=== PATIENT | female | born 1955 | race Caucasian/White ===

== ENCOUNTER 2020-08-15 10:23 | Outpatient (CLI) | payer OTHER, SELFPAY ==
--- NOTE | ~2020-08-15 | MM_ITS ---
EXAMINATION: MM screening pepe BI w alvarez HISTORY: Screening mammogram TECHNIQUE: Craniocaudal and mediolateral oblique 3-D tomosynthesis images were obtained and synthetic 2-D images were generated. CAD analysis was submitted and interpreted. COMPARISON: 08/12/2019 bilateral digital screening mammogram BREAST PARENCHYMAL COMPOSITION: The breasts are almost entirely fatty. FINDINGS: There is no evidence of suspicious mass, calcification, or architectural distortion to sugg est malignancy in either breast. There has been no suspicious interval change. IMPRESSION: 1. No mammographic evidence of malignancy. 2. Recommend routine screening mammography in one year. BI-RADS Category 1: Negative Reviewed, dictated and finalized at location A.
== END 2020-08-15 10:24 | disposition home or self-care (01) ==
PROVIDERS: Visit Provider Obstetrics & Gynecology
DX: Z12.31 Encounter for screening mammogram for malignant neoplasm of breast (principal)
CPT/HCPCS: 77063; 77067

== ENCOUNTER 2021-08-17 09:46 | Outpatient (CLI) | payer OTHER, SELFPAY ==
--- NOTE | ~2021-08-17 | MM_ITS ---
EXAMINATION: MM screening pepe BI w alvarez HISTORY: Screening TECHNIQUE: Craniocaudal and mediolateral oblique 3-D tomosynthesis images were obtained and synthetic 2-D images were generated. CAD analysis was submitted and interpreted. COMPARISON: Comparison to multiple prior studies sequentially, with oldest reviewed study dated 08/12. BREAST PARENCHYMAL COMPOSITION: There are scattered areas of fibroglandular density. FINDINGS: There is no evidence of suspicious mass, calcification, or architectural distortion to sugg est malignancy in either breast. There has been no suspicious interval change. IMPRESSION: 1. No mammographic evidence of malignancy. 2. Recommend routine screening mammography in one year. BI-RADS Category 1: Negative Reviewed, dictated and finalized at location A.
== END 2021-08-17 09:47 | disposition home or self-care (01) ==
LOC: ANHIMG 09:50
PROVIDERS: Visit Provider Obstetrics & Gynecology
DX: Z12.31 Encounter for screening mammogram for malignant neoplasm of breast (principal)
CPT/HCPCS: 77063; 77067

== ENCOUNTER 2022-10-18 14:13 | Outpatient (CLI) | payer OTHER, SELFPAY ==
--- NOTE | ~2022-10-18 | MM_ITS ---
EXAMINATION: MM screening pepe BI w alvarez HISTORY: Screening TECHNIQUE: Craniocaudal and mediolateral oblique 3-D tomosynthesis images were obtained and synthetic 2-D images were generated. CAD analysis was submitted and interpreted. COMPARISON: Comparison to multiple prior studies sequentially, with oldest reviewed study dated 08/12. BREAST PARENCHYMAL COMPOSITION: There are scattered areas of fibroglandular density. FINDINGS: There is no evidence of suspicious mass, calcification, or architectural distortion to sugg est malignancy in either breast. There has been no suspicious interval change. IMPRESSION: 1. No mammographic evidence of malignancy. 2. Recommend routine screening mammography in one year. BI-RADS Category 1: Negative Reviewed, dictated and finalized at location A. 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
== END 2022-10-18 14:14 | disposition home or self-care (01) ==
PROVIDERS: PCP Internal Medicine; Visit Provider Obstetrics & Gynecology
DX: Z12.31 Encounter for screening mammogram for malignant neoplasm of breast (principal)
CPT/HCPCS: 77063; 77067

== ENCOUNTER 2023-03-18 12:47 | Outpatient (CLI) | payer OTHER, SELFPAY ==
--- NOTE | ~2023-03-18 | DEXA_ITS ---
Bone Density Report Name: ANUJA MORENO Age: 67 Sex: Female Ethnicity: White Date of : 1955 Indication: postmenopausal; screening for osteoporosis; height loss; Referring Provider: KATIANA, JAN Belcher Study: Bone densitometry was performed. Exam Date: March 18, 2023 Accession number: [id number] Bone Density: Region BMD T-score Z-score Classification AP Spine(L1-L4) 0.954 -0.8 1.1 Normal Femoral Neck (Left) 0.662 -1.7 0.0 Osteopenia Total Hip (Left) 0.918 -0.2 1.2 Normal Femoral Neck (Right) 0.724 -1.1 0.5 Osteopenia Total Hip (Right) 1.075 1.1 2.5 Normal Total Hip Mean 0.997 0.5 1.9 Normal World Health Organization criteria for BMD impression classify patients as: Normal (T-score at or above -1.0), Osteopenia (T-score between -1.0 and -2.5), or Osteoporosis (T-score at or below -2.5). 10-year Fracture Risk(1): Major Osteoporotic Fracture 8.7% Hip Fracture 1.1% Reported Risk Factors: [place] (), Neck BMD=0.662, BMI=39.5 (1) FRAX(R) Version 3.08. Fracture probability calculated for an untreated patient. Fracture probability may be lower if the patient has received treatment. Clinical Information Provided by Patient: Patient maximum height was 64 Menopause Age: 57 No regular weight bearing exercise Drinks caffeinated beverages Onset of menses at age 14 Number of children 1 Impression: The patient has low bone mass, based on the Left Femoral Neck T-score. The patient has an estimated ten-year risk of hip fracture of 1.1% and an estimated ten-year risk of major fracture of 8.7%, based on the WHO FRAX algorithm. Discussion: BONE DENSITY IS LOW AT ONE OR MORE SKELETAL SITES. This patient's lowest T-score is low at one or more skeletal sites. It meets the World Health Organization's (WHO) criteria for ?low bone mass? (T-score between -1.0 and -2.5). The patient's 10-year risk of fracture as calculated by FRAX is less than the threshold where pharmacological therapy is recommended by the National Osteoporosis Foundation (NOF). However, all treatment decisions require clinical judgment and consideration of individual patient factors, including patient preferences, comorbidities, previous drug use, risk factors not captured in the FRAX model (e.g., frailty, falls, vitamin D deficiency, increased bone turnover, interval significant decline in bone density) and possible under or overestimation of fracture risk by FRAX. The patient should follow a healthful lifestyle (good nutrition with adequate calcium and vitamin D, and appropriate weight-bearing exercise). Follow-Up: Consider repeating this study in 2 to 3 years to reassess this patient's status, or sooner if there is some new clinical indication. Reported by: [facility] on 03/18/2023 1:08:00 PM.
== END 2023-03-18 12:48 | disposition home or self-care (01) ==
PROVIDERS: PCP Internal Medicine; Visit Provider Internal Medicine
DX: Z78.0 Asymptomatic menopausal state (principal); M85.852 Other specified disorders of bone density and structure, left thigh; M85.851 Other specified disorders of bone density and structure, right thigh
CPT/HCPCS: 77080

== ENCOUNTER 2023-10-21 10:13 | Outpatient (CLI) | payer OTHER, SELFPAY ==
--- NOTE | ~2023-10-21 | MM_ITS ---
EXAMINATION: MM screening pepe BI w alvarez HISTORY: Screening mammogram TECHNIQUE: Craniocaudal and mediolateral oblique 3-D tomosynthesis images were obtained and synthetic 2-D images were generated. CAD analysis was submitted and interpreted. COMPARISON: 10/18/2022, 08/17/2021, 08/15/2020 bilateral screening mammogram examinations BREAST PARENCHYMAL COMPOSITION: The breasts are almost entirely fatty. FINDINGS: There is no evidence of suspicious mass, calcification, or architectural distortion to sugg est malignancy in either breast. There has been no suspicious interval change. IMPRESSION: 1. No mammographic evidence of malignancy. 2. Recommend routine screening mammography in one year. BI-RADS Category 1: Negative Reviewed, dictated and finalized at location A. AURANT MGR
== END 2023-10-21 10:14 | disposition home or self-care (01) ==
LOC: ANHIMG 10:15
PROVIDERS: PCP Internal Medicine; Visit Provider Obstetrics & Gynecology
DX: Z12.31 Encounter for screening mammogram for malignant neoplasm of breast (principal)
CPT/HCPCS: 77063; 77067

== ENCOUNTER 2024-11-05 15:47 | Outpatient (CLI) | payer OTHER, SELFPAY ==
--- NOTE | ~2024-11-05 | MM_ITS ---
EXAMINATION: MM screening pepe BI w alvarez HISTORY: Screening TECHNIQUE: Craniocaudal and mediolateral oblique 3-D tomosynthesis images were obtained and synthetic 2-D images were generated. CAD analysis was submitted and interpreted. COMPARISON: Comparison to multiple prior studies sequentially, with oldest reviewed study dated 08/12. BREAST PARENCHYMAL COMPOSITION: Not Dense: The breasts are almost entirely fatty. FINDINGS: There is no evidence of suspicious mass, calcification, or architectural distortion to sugg est malignancy in either breast. There has been no suspicious interval change. IMPRESSION: 1. No mammographic evidence of malignancy. 2. Recommend routine screening mammography in one year. BI-RADS Category 1: Negative Reviewed, dictated and finalized at location B. 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
== END 2024-11-05 15:48 | disposition home or self-care (01) ==
PROVIDERS: PCP Internal Medicine; Visit Provider Obstetrics & Gynecology
DX: Z12.31 Encounter for screening mammogram for malignant neoplasm of breast (principal)
CPT/HCPCS: 77063; 77067

== ENCOUNTER 2025-08-06 14:13 | Outpatient (CLI) | payer OTHER, SELFPAY ==
--- OUTSIDE RECORDS SUMMARY | 2015-04-26 05:00 | XMS_ITS | Continuity of Care Document ---
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 Name Role Phone Nicol BAIRES, Kedar Unavailable Unavailable Allergies, Adverse Reactions, Alerts Substance Reaction Status Criticality No Known Allergies Active No Inform ation Medications Medication Instructions Dosage Effective Dates (start - stop) Status Comments Synthroid 25 mcg tablet take 1 tablet by oral route every day 25 MCG - Active Belviq 10 mg tablet take 1 tablet by ora l route 2 times every day - Active Procedures Procedure Date AFTER CATARACT LASER SURGERY OFFICE/OUTPATIENT VISIT, EST AFTER CATARACT LASER SURGERY OFFICE/OUTPATIENT VISIT, EST CATARACT SURG W/IOL, 1 STAGE CATARACT SURG W/IOL, 1 STAGE OFFICE/OUTPATIENT VISIT, NEW OPHTHALMIC BIOMETRY OPHTHALMIC BIOMETRY Advance Directives Directive Yes / No Effective Date File Name No Information Encounters Encounter Description Practice Location Reason(s) For Visit Diagnoses Date Provider Providers Copied on Encounter [facility], [id number] [place], [place] [address]TE [facility], [place], [place], [address], [place] tel:[phone] [facility] No Information Tank Thacker. [address] [place] [address], [address], [place], [place], [address], [place]. tel:[phone] Referring Provider: Kedar Rodriguez, [address] [facility] [address], [place], [address]. tel:[phone] OFFICE/OUTPA TIENT VISIT, EST [facility], [address] [facility] [address], [place], [place], [address], [place] tel:[phone] OPH CONSULT NIHARIKA GARCIA Yag PC eval (chief complaint) After-catarac t, obscuring visionOther vitreous opacitiesLens replaced by other means 5 Nicol Kedar. [address], [address], [place], [place], [address], [place]. tel:[phone] Referring Provider: Kedar Rodriguez, [address] [place] [address] [address], [place], [address]. tel:[phone] [facility], [address] [place], [place] [address], [place], [place], [id number], [place] tel:[phone] [facility] No Information 3 Nicol Kedar. [address] [facility], [address], [place], [place], [address], [place]. tel:[phone] Referring Provider: Kedar Rodriguez, [address] [place] [address] [address], [place], [address]. tel:[phone] OFFICE/OUTPA TIENT VISIT, EST [facility], [address] [place], [place] [address], [place], [place], [address], [place] tel:[phone] Oph Consult [facility] No Information 3 Nicol Kedar. [address] [facility], [address], [place], [place], [address], [place]. tel:[phone] Referring Provider: Kedar Rodriguez, [address] [facility] [address], [place], [address]. tel:[phone] [facility], [address] [place], [place] [address], [place], [place], [address], [place] tel:[phone] [facility] No Information 2 Nicol Kedar. [address] [facility], [address], [place], [place], [address], [place]. tel:[phone] Referring Provider: Kedar Rodriguez, [address], [place], [address]. tel:[phone] [facility], [address] [facility] [address], [place], [place], [address], tel:[phone] [facility] No Information 2 Nicolnichole Thacker. [address], [address], [place], [place], [address], [place]. tel:[phone] Referring Provider: Kedar Rodriguez, [address] [facility] [address], [place], [address]. tel:[phone] OFFICE/OUTPA TIENT VISIT, [facility], [address] [facility] [address], [place], [place], [address], tel:[phone] O[facility] No Information 2 Nicol Thacker. [address] [facility], [address], [place], [place], [address], . tel:[phone] Referring Provider: Kedar Rodriguez, [address] [facility] [address], [place], [address]. tel:[phone] Family History Family Member Type Diagnosis Age At Onset Maternal grandmother Problem (finding) glaucoma Payers Payer name Insurance type Covered green party ID Authoriza tion(s) [facility] CI [id number] Social History Type Description Quantity Date Captured Comments Sex Female Smoking Status No Information Chief Complaint And Reason For Visit No Information Reason For Referral Reason For Referral No Information History Of Present Illness Encounter Date Complaint History Of Prese nt Illness Yag PC eval Patient presents for Yag PC Eval per Dr. Israel. Patient complains of blurry vision OS. Patient states that its constant, significant, and progressively worsening over the last year. Patient has already had Yag PC OD. Functional Status Date Functional Assessmen t No Information Instructions Date Instruction Additional Infor cory Impression/Plan - Di scussed diagnosis in detail with patient. Discussed signs and symptoms of PVD/floaters. Discussed signs and symptoms of retinal detachment. Will continue to observe condition and or symptoms. Related to Other vitreous opacities Impression/Plan - s/ p Yag OD, Schedule Yag OS Related to Lens replaced by other means Impression/Plan - Di scussed diagnosis in detail with patient. Discussed treatment options with patient. Discussed risks/benefits of laser TX. Schedule Yag. Related to After-cataract, obscuring vision Assessments Type Assessment Date No Information Patient Care Teams Name Effective Dates (start - stop) Status Members No Information
--- NOTE | ~2025-08-06 | DEXA_ITS ---
Bone Density Report Name: ANUJA MORENO Age: 70 Sex: Female Ethnicity: White Date of : 1955 Indication: postmenopausal; screening for osteoporosis; height loss; Referring Provider: KATIANA, JAN Belcher Study: Bone densitometry was performed. Exam Date: August 06, 2025 Accession number: [id number] Bone Density: Region BMD T-score Z-score Classification AP Spine(L1-L4) 0.968 -0.7 1.4 Normal Femoral Neck (Left) 0.676 -1.6 0.2 Osteopenia Total Hip (Left) 0.946 0.0 1.5 Normal Femoral Neck (Right) 0.751 -0.9 0.9 Normal Total Hip (Right) 1.088 1.2 2.7 Normal Total Hip Mean 1.017 0.6 2.1 Normal World Health Organization criteria for BMD impression classify patients as: Normal (T-score at or above -1.0), Osteopenia (T-score between -1.0 and -2.5), or Osteoporosis (T-score at or below -2.5). 10-year Fracture Risk(1): Major Osteoporotic Fracture 8.7% Hip Fracture 1.2% Reported Risk Factors: [place] (), Neck BMD=0.676, BMI=41.1 (1) FRAX(R) Version 3.08. Fracture probability calculated for an untreated patient. Fracture probability may be lower if the patient has received treatment. Clinical Information Provided by Patient: Has used the following medications: Vitamin D Patient maximum height was 64 Menopause Age: 57 No regular weight bearing exercise Drinks caffeinated beverages Onset of menses at age 14 Number of children 1 Impression: The patient has low bone mass, based on the Left Femoral Neck T-score. The patient has an estimated ten-year risk of hip fracture of 1.2% and an estimated ten-year risk of major fracture of 8.7%, based on the WHO FRAX algorithm. Discussion: BONE DENSITY IS LOW AT ONE OR MORE SKELETAL SITES. This patient's lowest T-score is low at one or more skeletal sites. It meets the World Health Organization's (WHO) criteria for ?low bone mass? (T-score between -1.0 and -2.5). The patient's 10-year risk of fracture as calculated by FRAX is less than the threshold where pharmacological therapy is recommended by the National Osteoporosis Foundation (NOF). However, all treatment decisions require clinical judgment and consideration of individual patient factors, including patient preferences, comorbidities, previous drug use, risk factors not captured in the FRAX model (e.g., frailty, falls, vitamin D deficiency, increased bone turnover, interval significant decline in bone density) and possible under or overestimation of fracture risk by FRAX. The patient should follow a healthful lifestyle (good nutrition with adequate calcium and vitamin D, and appropriate weight-bearing exercise). Follow-Up: Consider repeating this study in 2 to 3 years to reassess this patient's status, or sooner if there is some new clinical indication. Reported by: CAMMY on 08/06/2025 3:07:00 PM. Reviewed, dictated and finalized at location A.
--- OUTSIDE RECORDS SUMMARY | 2025-08-06 14:17 | XMS_ITS | Clinical Summary ---
Author Organization [facility] Address [address] [place] [address] Care Team Providers Care Sales Representative Printing Paper Name Role Phone Roc Mcneal MD Primary Care Provider [phone] Social History Tobacco Use Types Packs/Day Years Used Date Smoking Tobacco: Never Assessed Comments Unknown Sex and Gender Information Value Date Recorded Sex Assigned at Not on file Legal Sex Female 4:07 PM CDT Gender Identity Not on file Sexual Orientation Not on file Plan of Treatment Health Maintenance Due Date Last Done Comments Colorectal Cancer Screening Colonoscopy (10 Years) 1955 Hepatitis C 1973 DTaP, Tdap and Td Vaccines ( 1 - Tdap) 1974 Mammogram Screening 1995 Pneumococcal Vaccine: 50+ Ye ars (1 of 1 - PCV) 2005 Zoster Vaccines (1 of 2) 2005 Dexa Scan (General) 2020 COVID-19 Vaccine (1 - 2023-2 5 season) 2025 RSV Immunization or 60+ Years (1 - 1-dose 75+ series) 2030 Meningococcal B Vaccine Aged Out No l onger eligible based on patient's age to complete this topic Meningococcal Vaccine Aged Out No michelle jessica eligible based on patient's age to complete this topic RSV Immunizations Under 20 Months Aged Out No longer eligible based on patient's age to complete this topic Care Teams Sales Representative Printing Paper Relationship Specialty Start Date End Date Roc Mcneal MD [address] [place] [address] PCP - General 03/11/17
--- OUTSIDE RECORDS SUMMARY | 2025-08-06 14:17 | XMS_ITS | Encounter Summary ---
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 Historical Provider Final Res ult documented in this encounter Visit Diagnoses Not on filedocumented in this encounter Care Teams Electric Crane Operator Relationship Specialty Start Date End Date Roc Mcneal MD [address] [place] [address] PCP - General Internal Medicine 04/16/19 documented as of this encounter
--- OUTSIDE RECORDS SUMMARY | 2025-08-06 14:17 | XMS_ITS | Encounter Summary ---
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 Historical Provider Final Res ult documented in this encounter Visit Diagnoses Not on filedocumented in this encounter Care Teams Food Editor Relationship Specialty Start Date End Date Roc Mcneal MD [address] [place] [address] PCP - General Internal Medicine 04/16/19 documented as of this encounter
--- OUTSIDE RECORDS SUMMARY | 2025-08-06 14:17 | XMS_ITS | Clinical Summary ---
Author Organization [facility] at the [facility] Address [address] [place] [address] Care Team Providers Care Mechanical Tech Name Role Phone Roc Mcneal MD Primary Care Provider [phone] Allergies No known active allergies Medications cholecalciferol (VITAMIN D-3) 5,000 unit tablet Take 1 tablet (5,000 Units total) by mouth daily 30 tablet 11 3 Active levothyroxine (SYNTHROID) 100 mcg tablet TAKE 1 TABLET (100 MCG TOTAL) BY MOUTH MANAGER RETAIL SALES BEFORE BREAKFAST 90 tablet 2 5 Active valsartan (DIOVAN) 80 mg tablet TAKE 1 TABLET BY MOUTH EVERY DAY 90 tablet 1 5 Active Active Problems Problem Noted Date Diagnosed Date Secondary hyperparathyroidism 05/05/2025 Assessment & Plan (05/05/2025 4:47 PM CDT): Managed by the hydrotel operator Hypertensive kidney disease with stage 3a chronic kidney disease 11/04/2024 Assessment & Plan (05/05/2025 1:03 PM CDT): Continue current medications. Discussed low-salt diet. Discussed exercise on regular basis. Will continue to monitor Assessment & Plan (11/04/2024 5:20 PM HUMAN RESOURCES BENEFITS ADMINISTRATOR): Blood pressure is high. Patient has history of chronic kidney disease. She has mild proteinuria. Will start her on valsartan 80 mg daily. Side effects were explained. She will check her blood pressure on regular basis and call us if the blood pressure stays elevated. Stage 3a chronic kidney disease 04/30/2023 Assessment & Plan (05/05/2025 1:04 PM CDT): Renal function is stable. Patient is followed by the hydrotel operator. Assessment & Plan (11/04/2024 8:13 AM HUMAN RESOURCES BENEFITS ADMINISTRATOR): Renal function is stable. Patient is followed by the hydrotel operator. Assessment & Plan (04/29/2024 8:11 AM CDT): Renal function is stable. Patient is followed by the hydrotel operator. Assessment & Plan (10/28/2023 8:33 AM HUMAN RESOURCES BENEFITS ADMINISTRATOR): Renal function is stable. Patient is followed by the hydrotel operator. Assessment & Plan (04/30/2023 11:51 AM CDT): Renal function is worse than before. Discussed again the importance of increasing fluid intake to at least 64 oz daily. Will make a referral to see a hydrotel operator for further evaluation. Acute pain of right knee 04/30/2023 Assessment & Plan (04/30/2023 11:52 AM CDT): There is pain in the right knee for about 1 week. Exam showed mild tenderness on the medial aspect with mild effusion. It is possible that she has bursitis or tendinitis. She will apply Biofreeze twice daily. Call for persistent symptoms. Osteopenia of multiple sites 04/30/2023 Assessment & Plan (04/30/2023 11:53 AM CDT): DEXA scan in January 2023 showed mild osteopenia. Advised to take calcium 500 mg daily and vitamin-D 1000 units daily Morbid obesity with BMI of 40.0-44.9, adult 04/02 Assessment & Plan (05/05/2025 1:03 PM CDT): BMI Follow-up includes: nutrition counseling. The patient was advised to exercise 5 times a week for 30 minutes each time. We discussed low calorie diet. Discussed lifestyle changes. Assessment & Plan (11/04/2024 8:13 AM HUMAN RESOURCES BENEFITS ADMINISTRATOR): BMI Follow-up includes: nutrition counseling. The patient was advised to exercise 5 times a week for 30 minutes each time. We discussed low calorie diet. Discussed lifestyle changes. Assessment & Plan (04/29/2024 8:11 AM CDT): BMI Follow-up includes: nutrition counseling. The patient was advised to exercise 5 times a week for 30 minutes each time. We discussed low calorie diet. Discussed lifestyle changes. Assessment & Plan (10/28/2023 8:31 AM HUMAN RESOURCES BENEFITS ADMINISTRATOR): BMI Follow-up includes: nutrition counseling. The patient was advised to exercise 5 times a week for 30 minutes each time. We discussed low calorie diet. Discussed lifestyle changes. Assessment & Plan (04/30/2023 11:52 AM CDT): BMI Follow-up includes: nutrition counseling. The patient was advised to exercise 5 times a week for 30 minutes each time. We discussed low calorie diet. Discussed lifestyle changes. Assessment & Plan (04/23/2022 5:06 PM CDT): BMI Follow-up includes: nutrition counseling. The patient was advised to exercise 5 times a week for 30 minutes each time. We discussed low calorie diet. Discussed lifestyle changes. Continue phentermine-Topamax. Patient has no side effects with the medication. Left foot pain 10/21/2019 Assessment & Plan (12/21/2019 1:52 PM HUMAN RESOURCES BENEFITS ADMINISTRATOR): Will make the patient a referral to see a radiology receptionist for further evaluation and possible steroid injection to help with tendinitis of the left foot. Assessment & Plan (10/21/2019 4:47 PM HUMAN RESOURCES BENEFITS ADMINISTRATOR): The patient has localized pain and tenderness on the medial aspect of the left foot. Patient will apply ice and Aspercreme as needed and she will wear an ankle brace and call us for persistent symptoms in 2 weeks. Obesity (BMI 30-39.9) 10/20/2019 Assessment & Plan (10/23/2021 4:59 PM HUMAN RESOURCES BENEFITS ADMINISTRATOR): Patient likes to try medications for weight loss. She will be started on Qsymia 7.5 mg daily. Discussed the importance of diet and exercise to help with weight loss. Assessment & Plan (04/20/2021 4:43 PM CDT): BMI Follow-up includes: nutrition counseling. The patient was advised to exercise 5 times a week for 30 minutes each time. We discussed low calorie diet. Discussed lifestyle changes. Assessment & Plan (10/20/2020 12:56 PM HUMAN RESOURCES BENEFITS ADMINISTRATOR): Continue current medications. Discussed low-salt diet. Discussed exercise on regular basis. Will continue to monitor Assessment & Plan (04/20/2020 2:27 PM CDT): BMI Follow-up includes: nutrition counseling. The patient was advised to exercise 5 times a week for 30 minutes each time. We discussed low calorie diet. Discussed lifestyle changes. Assessment & Plan (10/21/2019 12:56 PM HUMAN RESOURCES BENEFITS ADMINISTRATOR): BMI Follow-up includes: nutrition counseling. The patient was advised to exercise 5 times a week for 30 minutes each time. We discussed low calorie diet. Discussed lifestyle changes. Skin lesions 2019 Assessment & Plan (04/29/2024 6:00 PM CDT): Patient has couple of cyst-like lesions on the face. There is no change in color or size according to the patient in the last 3 months or so. She likes to watch them. If they persist with her next visit will make a referral to see a desizing machine operator Assessment & Plan (2019 4:15 PM CDT): The patient has 2 skin lesions consistent with actinic keratosis. They were treated with liquid nitrogen. She will call if they persist. Anxiety 07/24/2016 Assessment & Plan (04/20/2021 4:42 PM CDT): The patient declined medications. She can seek counseling. She is to call if she changes her mind. Assessment & Plan (04/20/2019 5:31 PM CDT): Stable on no medications Osteoarthritis of hip, unspecified 07/24/2016 Primary osteoarthritis, unspecified shoulder Chronic anemia 03/19/2016 Assessment & Plan (11/04/2024 8:13 AM HUMAN RESOURCES BENEFITS ADMINISTRATOR): Hemoglobin is normal at 13.2 Assessment & Plan (10/24/2022 1:02 PM HUMAN RESOURCES BENEFITS ADMINISTRATOR): Hemoglobin is normal at 13.2 Assessment & Plan (04/20/2021 4:43 PM CDT): Will obtain blood test for next visit Assessment & Plan (12/21/2019 1:52 PM HUMAN RESOURCES BENEFITS ADMINISTRATOR): Patient has mild chronic anemia with no change Assessment & Plan (10/21/2019 12:57 PM HUMAN RESOURCES BENEFITS ADMINISTRATOR): Resolved and last hemoglobin was normal Assessment & Plan (04/20/2019 5:31 PM CDT): Mild anemia and will continue to monitor Acquired hypothyroidism 03/19/2016 Assessment & Plan (05/05/2025 1:03 PM CDT): Continue current dose of medication. Will continue to monitor Assessment & Plan (11/04/2024 8:12 AM HUMAN RESOURCES BENEFITS ADMINISTRATOR): Continue current dose of medication. Will continue to monitor Assessment & Plan (04/29/2024 8:10 AM CDT): Continue current dose of medication. Will continue to monitor Assessment & Plan (10/28/2023 8:32 AM HUMAN RESOURCES BENEFITS ADMINISTRATOR): Continue current dose of medication. Will continue to monitor Assessment & Plan (04/30/2023 11:51 AM CDT): Continue current dose of medication. Will continue to monitor Assessment & Plan (10/24/2022 1:02 PM HUMAN RESOURCES BENEFITS ADMINISTRATOR): Continue current dose of medication. Will continue to monitor Assessment & Plan (04/23/2022 1:06 PM CDT): Continue current dose of medication. Will continue to monitor Assessment & Plan (10/23/2021 4:59 PM HUMAN RESOURCES BENEFITS ADMINISTRATOR): Continue current dose of medication. Will continue to monitor Assessment & Plan (04/20/2021 4:43 PM CDT): Continue current dose of medication. Will continue to monitor Assessment & Plan (10/20/2020 12:56 PM HUMAN RESOURCES BENEFITS ADMINISTRATOR): Continue current dose of medication. Will continue to monitor Assessment & Plan (04/20/2020 2:27 PM CDT): Continue current dose of medication. Will continue to monitor Assessment & Plan (12/21/2019 1:52 PM HUMAN RESOURCES BENEFITS ADMINISTRATOR): Continue current dose of medication. Will continue to monitor Assessment & Plan (10/21/2019 12:56 PM HUMAN RESOURCES BENEFITS ADMINISTRATOR): Continue current dose of medication. Will continue to monitor Assessment & Plan (04/20/2019 5:31 PM CDT): Continue current dose of medication. Will continue to monitor Lower back pain 03/13/2016 Resolved Problems Problem Noted Date Diagnosed Date Resolved Date Chronic kidney disease, stage 2 (mild) 03/19/2016 10/28/2023 Assessment & Plan (10/28/2023 8:32 AM HUMAN RESOURCES BENEFITS ADMINISTRATOR): Renal function is stable Assessment & Plan (10/24/2022 1:02 PM HUMAN RESOURCES BENEFITS ADMINISTRATOR): Renal function is stable Assessment & Plan (04/23/2022 1:06 PM CDT): Increase fluid intake and avoid nephrotoxins Assessment & Plan (10/23/2021 4:59 PM HUMAN RESOURCES BENEFITS ADMINISTRATOR): Renal function improved Assessment & Plan (04/20/2021 4:43 PM CDT): Patient does not drink enough water. We discussed the importance of increasing fluid intake mainly water and avoid soda and coffee. Assessment & Plan (10/20/2020 5:02 PM HUMAN RESOURCES BENEFITS ADMINISTRATOR): Mild with no change and continue to increase the fluid intake Assessment & Plan (04/20/2020 2:27 PM CDT): We discussed the importance of increasing fluid intake and avoidance of soda and caffeinated products. Will obtain renal ultrasound and repeat the blood work again in few months Assessment & Plan (04/20/2019 5:31 PM CDT): Stable renal function and we discussed low-salt diet Encounters Date Type Department Care Team Description 07/22/2025 Telephone [facility] Internal Medicine [address] [place] [address] [place] [id number] Roc Mcneal MD Medical Question/Miscellaneous from Last 3 Months Immunizations Immunization Administration Dates Next Due Influenza, Unspecified 11/04/2024(Deferr ed: Patient Refused),10/28/2023(Deferred: Patient decision),09/12/2022(Deferred: Patient decision) Surgical History Surgery Date Site/Laterality Comments TUBAL LIGATION GALLBLADDER SURGERY CHOLECYSTECTOMY Medical History Medical History Date Comments Lower back pain Obesity Chronic anemia Hypothyroid CKD (chronic kidney disease) Anxiety Primary osteoarthritis, unspecified shoulder Family History Medical History Relation Name Comments COPD Brother 1 Ovi Lowry COPD Brother 2 Alberto Lowry Colon cancer Father Akil Lowere Diabetes Father Akil Lowere Brain cancer Mother Ashli Lowere Diabetes Mother Ashli Legendre Lung cancer Mother Ashli Lowry Alzheimer's disease Sister Elizabeth Garvin Relation Name Status Comments Brother 1 Ovi Legendre Brother 2 Alberto Legendre Father Akil Legendre Mother Ashli Lowry Sister Elizabeth Garvin Social History Tobacco Use Types Packs/Day Years Used Date Smoking Tobacco: Never Cigarettes Smokeless Tobacco: Never Tobacco Cessation:Counseling Given: Not Answered Alcohol Use Standard Drinks/Week Comments Not Currently 0 (1 standard drink = 0.6 oz pur e alcohol) socially AUDIT-C Answer Date Recorded Q1: How often do you have a drink containing alc ohol? Monthly or less 05/05/2025 Q2: How many drinks containi ng alcohol do you have on a typical day when you are drinking? 1 or 2 05/05/2025 Q3: How often do you have si x or more drinks on one occasion? Never 05/05/2025 PHQ-2 Answer Date Recorded PHQ-2 Total Score (If total score is 3 or more points, staff should administer the PHQ-9) 1 05/01/2025 Comments Unknown Sex and Gender Information Value Date Recorded Sex Assigned at Not on file Legal Sex Female 6:46 PM HUMAN RESOURCES BENEFITS ADMINISTRATOR Gender Identity Female 10/06/2021 5:34 PM CDT Sexual Orientation Straight 10/06/2021 5: 34 PM CDT Obstetrics History Last Filed Vital Signs Vital Sign Reading Time Taken Comments Blood Pressure 130/84 05/05/2025 2:13 PM CDT Pulse 64 05/05/2025 2:13 PM CDT Temperature 36.1 C (97 F) 05/05/2025 2:13 PM CDT Respiratory Rate 18 05/05/2025 2:13 PM CDT Oxygen Saturation 96% 05/05/2025 2:13 PM CDT Inhaled Oxygen Concentration - - Weight 103.4 kg (228 lb) 05/05/2025 2:13 PM CDT Height 160 cm (5' 3) 05/05/2025 2:13 PM CDT Body Mass Index 40.39 05/05/2025 2:13 PM CDT Plan of Treatment Health Maintenance Due Date Last Done Comments DTaP/Tdap/Td Vaccine (1 - Tdap) 1966 Hepatitis B Screening 1973 Osteoporosis Screening-Bone Density Scan 03/18/2025 03/18/2023 Breast Cancer Screening-Mammogram 11/05/2025 11/05/2024, 10/21/2023, 08/15/2020, Additional history exists Colon Cancer Screening-Colonoscopy 04/20/2026 04/20/2016 Depression Screening 05/05/2026 05/05/2025, 11/04/2024, 04/29/2024, Additional history exists Fall Risk Assessment 05/05/2026 05/05/2025, 11/04/2024, 04/30/2023, Additional history exists Well Visit 65+ 05/05/2026 05/05/2025 Colon Cancer Screening-CT Colonography Discontinued 04/20/2016 Colon Cancer Screening-DNA Stool Discontinued 04/20/20 16 Colon Cancer Screening-FIT Discontinued 04/20/2016 Colon Cancer Screening-Sigmoidoscopy Discontinued 04/20/2016 Hepatitis C Screening Completed 04/22/2024 Influenza Vaccine Discontinued Pneumococcal vaccine 65+ Discontinued Zoster Vaccine Discontinued Procedures Procedure Name Priority Date/Time Associated Diagnosis Comments MAMMOGRAPHY Routine 11/05/2024 8:20 AM HUMAN RESOURCES BENEFITS ADMINISTRATOR HEPATITIS C ANTIBODY Routine 04/22/2024 1:00 PM CDT DEXA AXIAL SKELETON BONE DENSITY 1 OR MORE SITES Schedule Routine, Read Routine (OP Routine) 03/18/2023 COLONOSCOPY Routine 04/20/2016 from Last 3 Months or Most Recently Relevant to Health Maintenance Results * MAMMOGRAPHY (11/05/2024 8:20 AM HUMAN RESOURCES BENEFITS ADMINISTRATOR) Mammography Normal [facility] Provider HEALTH MAINTENANCE Final Result * Hepatitis C antibody (04/22/2024 1:00 PM CDT) Hep C Ab NON-REACTI VE NON-REACT SHAZIA [facility] Comment: HCV antibody was non-reactive. There is no laboratory evidence of HCV infection. In most cases, no further action is required. However, if recent HCV exposure is suspected, a test for HCV RNA (test code 01645) is suggested. For additional information please refer to http://education.[employer]/faq/JFM71n7 (This link is being provided for informational/ educational purposes only.) 04/22/2024 1:00 PM CDT 04/22/2024 1:01 PM CDT Roc Mcneal MD LAB MICROBIOLOGY - GENERAL ORDERABLES Final Result [facility] [address] [id number] * Dexa Axial Skeleton Bone Density 1 or 2 Site (03/18/2023) Anatomical Region Laterality Modality Body N/A Radiographic Monse ging us Historical Provider IMG DXA PROCEDURES Final Result * COLONOSCOPY (04/20/2016) Colonoscopy Normal Comment:repeat in 10 years Joann Cardona us Historical Provider HEALTH MAINTENANCE Final Result from Last 3 Months or Most Recently Relevant to Health Maintenance Insurance [facility] Care Teams Mechanical Tech Relationship Specialty Start Date End Date Roc Mcneal MD [address] [place] [address] PCP - General Internal Medicine 04/16/19
--- OUTSIDE RECORDS SUMMARY | 2025-08-06 14:17 | XMS_ITS | Encounter Summary ---
Author Organization [facility] Facility Care Team Providers Care Crop Insurance Claims Adjuster Name Role Phone Roc Mcneal MD Primary Care Provider [phone] Encounter Details Date Type Department Care Team (Latest Contact Info) Description 12/26/2016 Orders Only [facility] CLINCONV ProviderCarly MD [address] [place] [id number] Social History Tobacco Use Types Packs/Day Years Used Date Smoking Tobacco: Never Assessed Comments Unknown Sex and Gender Information Value Date Recorded Sex Assigned at Not on file Legal Sex Female 6:46 PM PRODUCT ARCHITECT Gender Identity Female 10/06/2021 5:34 PM CDT Sexual Orientation Straight 10/06/2021 5: 34 PM CDT documented as of this encounter Plan of Treatment Not on file documented as of this encounter Procedures Procedure Name Priority Date/Time Associated Diagnosis Comments PROCEDURE - RESULT 01/02/2017 12 :00 AM PRODUCT ARCHITECT documented in this encounter Results * PROCEDURE - RESULT (01/02/2017 12:00 AM PRODUCT ARCHITECT) Narrative 01/02/2017 12:00 AM PRODUCT ARCHITECT Ordered by an unspecified provider. Historical Provider Final Res ult documented in this encounter Visit Diagnoses Not on filedocumented in this encounter Care Teams Crop Insurance Claims Adjuster Relationship Specialty Start Date End Date Roc Mcneal MD [address] [facility] [place] [address] PCP - General Internal Medicine 04/16/19 documented as of this encounter
--- OUTSIDE RECORDS SUMMARY | 2025-08-06 14:17 | XMS_ITS | Encounter Summary ---
Author Organization [facility] Facility Care Team Providers Care Tilt Wall Supervisor Name Role Phone Roc Mcneal MD Primary Care Provider [phone] Encounter Details Date Type Department Care Team (Latest Contact Info) Description 06/13/2016 Orders Only [facility] CLINCONV ProviderCarly MD [address] [place] [id number] Social History Tobacco Use Types Packs/Day Years Used Date Smoking Tobacco: Never Assessed Comments Unknown Sex and Gender Information Value Date Recorded Sex Assigned at Not on file Legal Sex Female 6:46 PM DIRECTOR TITLE Gender Identity Female 10/06/2021 5:34 PM CDT Sexual Orientation Straight 10/06/2021 5: 34 PM CDT documented as of this encounter Plan of Treatment Not on file documented as of this encounter Procedures Procedure Name Priority Date/Time Associated Diagnosis Comments SCAN - LABS 06/14/2016 12:00 AM CDT documented in this encounter Results * SCAN - LABS (06/14/2016 12:00 AM CDT) Narrative 06/14/2016 12:00 AM CDT Ordered by an unspecified provider. Historical Provider Final Res ult documented in this encounter Visit Diagnoses Not on filedocumented in this encounter Care Teams Tilt Wall Supervisor Relationship Specialty Start Date End Date Roc Mcneal MD [address] [place] [address] PCP - General Internal Medicine 04/16/19 documented as of this encounter
--- OUTSIDE RECORDS SUMMARY | 2025-08-06 14:17 | XMS_ITS | Encounter Summary ---
Author Organization [facility] Facility Care Team Providers Care Glued Wood Tester Name Role Phone Roc Mcneal MD Primary Care Provider [phone] Encounter Details Date Type Department Care Team (Latest Contact Info) Description 06/10/2017 Orders Only [facility] CLINCONV ProviderCarly MD [address] [place] [id number] Social History Tobacco Use Types Packs/Day Years Used Date Smoking Tobacco: Never Assessed Comments Unknown Sex and Gender Information Value Date Recorded Sex Assigned at Not on file Legal Sex Female 6:46 PM SCREW DOWN Gender Identity Female 10/06/2021 5:34 PM CDT Sexual Orientation Straight 10/06/2021 5: 34 PM CDT documented as of this encounter Plan of Treatment Not on file documented as of this encounter Procedures Procedure Name Priority Date/Time Associated Diagnosis Comments SCAN - LABS 06/11/2017 12:00 AM CDT SCAN - LABS 06/11/2017 12:00 AM CDT documented in this encounter Results * SCAN - LABS (06/11/2017 12:00 AM CDT) Narrative 06/11/2017 12:00 AM CDT Ordered by an unspecified provider. Historical Provider Final Res ult * SCAN - LABS (06/11/2017 12:00 AM CDT) Narrative 06/11/2017 12:00 AM CDT Ordered by an unspecified provider. us Historical Provider MD Final Res ult documented in this encounter Visit Diagnoses Not on filedocumented in this encounter Care Teams Glued Wood Tester Relationship Specialty Start Date End Date Roc Mcneal MD [address] [place] [place] [id number] PCP - General Internal Medicine 04/16/19 documented as of this encounter
--- OUTSIDE RECORDS SUMMARY | 2025-08-06 14:17 | XMS_ITS | Encounter Summary ---
Author Organization [facility] Facility Care Team Providers Care Analytical Chemistry Teacher Name Role Phone Roc Mcneal MD Primary Care Provider [phone] Encounter Details Date Type Department Care Team (Latest Contact Info) Description 03/12/2016 Orders Only [facility] CLINCONV ProviderCarly MD [address] [place] [address] Social History Tobacco Use Types Packs/Day Years Used Date Smoking Tobacco: Never Assessed Comments Unknown Sex and Gender Information Value Date Recorded Sex Assigned at Not on file Legal Sex Female 6:46 PM FREEZING ROOM WORKER Gender Identity Female 10/06/2021 5:34 PM CDT Sexual Orientation Straight 10/06/2021 5: 34 PM CDT documented as of this encounter Plan of Treatment Not on file documented as of this encounter Procedures Procedure Name Priority Date/Time Associated Diagnosis Comments SCAN - LABS 03/13/2016 12:00 AM CDT documented in this encounter Results * SCAN - LABS (03/13/2016 12:00 AM CDT) Narrative 03/13/2016 12:00 AM CDT Ordered by an unspecified provider. Historical Provider Final Res ult documented in this encounter Visit Diagnoses Not on filedocumented in this encounter Care Teams Analytical Chemistry Teacher Relationship Specialty Start Date End Date Roc Mcneal MD [address] [place] [address] PCP - General Internal Medicine 04/16/19 documented as of this encounter
== END 2025-08-06 14:14 | disposition home or self-care (01) ==
LOC: ANHFOHIMG 14:15
PROVIDERS: PCP Internal Medicine; Visit Provider Internal Medicine
DX: M85.852 Other specified disorders of bone density and structure, left thigh (principal); Z78.0 Asymptomatic menopausal state
CPT/HCPCS: 77080

== ENCOUNTER 2025-11-10 15:29 | Outpatient (CLI) | payer OTHER, SELFPAY ==
--- NOTE | ~2025-11-10 | MM_ITS ---
EXAMINATION: MM screening pepe BI w alvarez HISTORY: Screening. TECHNIQUE: Craniocaudal and mediolateral oblique 3-D tomosynthesis images were obtained and synthetic 2-D images were generated. CAD analysis was submitted and interpreted. COMPARISON: 2023, 2022, and 2021. BREAST PARENCHYMAL COMPOSITION: Not Dense: The breasts are almost entirely fatty FINDINGS: No suspicious masses are seen. There are no suspicious calcifications. No unexplained architectural distortion is seen. There are no skin or nipple abnormalities identified. There is no adenopathy seen on the images submitted. IMPRESSION: No mammographic evidence to suggest malignancy is seen. The patient may return to screening mammography as per ACR guidelines. BI-RADS 1 - Negative. Reviewed, dictated and finalized at location C. STICK WORKER
--- OUTSIDE RECORDS SUMMARY | 2025-11-10 20:35 | XMS_ITS | Encounter Summary ---
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
--- OUTSIDE RECORDS SUMMARY | 2025-11-10 20:35 | XMS_ITS | Clinical Summary ---
Author Organization [facility] Address [address] [place] [id number] Care Team Providers Care French Professor Name Role Phone Roc Mcneal MD Primary Care Provider Social History Tobacco Use Types Packs/Day Years [...] Scan (General) 2020 COVID-19 Vaccine (1 - 2024-2 6 season) 2025 Influenza Adult (#1) 2025 RSV Immunization or 60+ Years (1 - 1-dose 75+ series) 2030 Hepatitis A Vaccines Aged Out No long er eligible based on patient's age to complete this topic Meningococcal B Vaccine Aged Out No l onger eligible based on patient's age to complete this topic Meningococcal Vaccine Aged Out No michelle jessica eligible based on patient's age to complete this topic RSV Immunizations Under 20 Months Aged Out No longer eligible based on patient's age to complete this topic Care Teams French Professor Relationship Specialty Start Date End Date Roc Mcneal MD [address] [place] [address] PCP - General 03/11/17
--- OUTSIDE RECORDS SUMMARY | 2025-11-10 20:35 | XMS_ITS | Clinical Summary ---
Author Organization [facility] at the [facility] Office Center Address [address] [place] [address] Care Team Providers Care Shoe Sewing Machine Operator And Tender Name Role Phone Roc Mcneal MD Primary Care Provider [phone] Allergies No known active allergies Medications cholecalciferol (VITAMIN D-3) 5,000 unit tablet Take 1 tablet (5,000 Units total) by mouth daily 30 tablet 11 3 Active valsartan (DIOVAN) 80 mg tablet TAKE 1 TABLET BY MOUTH EVERY DAY 90 tablet 1 5 Active levothyroxine (SYNTHROID) 100 mcg tablet TAKE 1 TABLET (100 MCG TOTAL) BY MOUTH CAMP ASSISTANT BEFORE BREAKFAST 90 tablet 1 5 Active Active Problems Problem Noted Date Diagnosed Date Lymphocytosis 10/25/2025 Assessment & Plan (10/25/2025 4:43 PM FISH CAKE MAKER): Patient has increased lymphocyte count on recent blood work. She is asymptomatic. Will repeat CBC in couple of months Secondary hyperparathyroidism 05/05/2025 Assessment & Plan (05/05/2025 4:47 PM CDT): Managed by the cylinder block mechanic Hypertensive kidney disease with stage 3a chronic kidney disease 11/04/2024 Assessment & Plan (10/25/2025 7:54 AM FISH CAKE MAKER): Continue current medications. Discussed low-salt diet. Discussed exercise on regular basis. Will continue to monitor Assessment & Plan (05/05/2025 1:03 PM CDT): Continue current medications. Discussed low-salt diet. Discussed exercise on regular basis. Will continue to monitor Assessment & Plan (11/04/2024 5:20 PM FISH CAKE MAKER): Blood pressure is high. Patient has history of chronic kidney disease. She has mild proteinuria. Will start her on valsartan 80 mg daily. Side effects were explained. She will check her blood pressure on regular basis and call us if the blood pressure stays elevated. Stage 3a chronic kidney disease 04/30/2023 Assessment & Plan (10/25/2025 7:54 AM FISH CAKE MAKER): Renal function is stable. Patient is followed by the cylinder block mechanic. Assessment & Plan (05/05/2025 1:04 PM CDT): Renal function is stable. Patient is followed by the cylinder block mechanic. Assessment & Plan (11/04/2024 8:13 AM FISH CAKE MAKER): Renal function is stable. Patient is followed by the cylinder block mechanic. Assessment & Plan (04/29/2024 8:11 AM CDT): Renal function is stable. Patient is followed by the cylinder block mechanic. Assessment & Plan (10/28/2023 8:33 AM FISH CAKE MAKER): Renal function is stable. Patient is followed by the cylinder block mechanic. Assessment & Plan (04/30/2023 11:51 AM CDT): Renal function is worse than before. Discussed again the importance of increasing fluid intake to at least 64 oz daily. Will make a referral to see a cylinder block mechanic for further evaluation. Acute pain of right [...] of multiple sites 04/30/2023 Assessment & Plan (10/25/2025 7:54 AM FISH CAKE MAKER): DEXA scan in January 2023 showed mild osteopenia. Continue vitamin-D 2000 mg daily and calcium 500 mg daily Assessment & Plan (04/30/2023 11:53 AM CDT): DEXA scan in January 2023 showed mild osteopenia. Advised to take calcium 500 mg daily and vitamin-D 1000 units daily Morbid obesity with BMI of 40.0-44.9, adult 04/02 Assessment & Plan (10/25/2025 7:54 AM FISH CAKE MAKER): BMI Follow-up includes: nutrition counseling. The patient was advised to exercise 5 times a week for 30 minutes each time. We discussed low calorie diet. Discussed lifestyle changes. Assessment & Plan (05/05/2025 1:03 PM CDT): BMI Follow-up includes: nutrition counseling. The patient was advised to exercise 5 times a week for 30 minutes each time. We discussed low calorie diet. Discussed lifestyle changes. Assessment & Plan (11/04/2024 8:13 AM FISH CAKE MAKER): BMI Follow-up includes: nutrition counseling. The patient [...] changes. Assessment & Plan (10/28/2023 8:31 AM FISH CAKE MAKER): BMI Follow-up includes: nutrition counseling. The patient [...] 10/21/2019 Assessment & Plan (12/21/2019 1:52 PM FISH CAKE MAKER): Will make the patient a referral to see a hotel controller for further evaluation and possible steroid injection to help with tendinitis of the left foot. Assessment & Plan (10/21/2019 4:47 PM FISH CAKE MAKER): The patient has localized pain and tenderness on the medial aspect of the left foot. Patient will apply ice and Aspercreme as needed and she will wear an ankle brace and call us for persistent symptoms in 2 weeks. Obesity (BMI 30-39.9) 10/20/2019 Assessment & Plan (10/23/2021 4:59 PM FISH CAKE MAKER): Patient likes to try medications for weight [...] changes. Assessment & Plan (10/20/2020 12:56 PM FISH CAKE MAKER): Continue current medications. Discussed low-salt diet. Discussed exercise on regular basis. Will continue to monitor Assessment & Plan (04/20/2020 2:27 PM CDT): BMI Follow-up includes: nutrition counseling. The patient was advised to exercise 5 times a week for 30 minutes each time. We discussed low calorie diet. Discussed lifestyle changes. Assessment & Plan (10/21/2019 12:56 PM FISH CAKE MAKER): BMI Follow-up includes: nutrition counseling. The patient [...] will make a referral to see a advertising intern Assessment & Plan (2019 4:15 PM CDT): [...] shoulder Chronic anemia 03/19/2016 Assessment & Plan (10/25/2025 7:54 AM FISH CAKE MAKER): Hemoglobin is normal at 13.2 Assessment & Plan (11/04/2024 8:13 AM FISH CAKE MAKER): Hemoglobin is normal at 13.2 Assessment & Plan (10/24/2022 1:02 PM FISH CAKE MAKER): Hemoglobin is normal at 13.2 Assessment & Plan (04/20/2021 4:43 PM CDT): Will obtain blood test for next visit Assessment & Plan (12/21/2019 1:52 PM FISH CAKE MAKER): Patient has mild chronic anemia with no change Assessment & Plan (10/21/2019 12:57 PM FISH CAKE MAKER): Resolved and last hemoglobin was normal Assessment & Plan (04/20/2019 5:31 PM CDT): Mild anemia and will continue to monitor Acquired hypothyroidism 03/19/2016 Assessment & Plan (10/25/2025 7:54 AM FISH CAKE MAKER): Continue current dose of medication. Will continue to monitor Assessment & Plan (05/05/2025 1:03 PM CDT): Continue current dose of medication. Will continue to monitor Assessment & Plan (11/04/2024 8:12 AM FISH CAKE MAKER): Continue current dose of medication. Will continue to monitor Assessment & Plan (04/29/2024 8:10 AM CDT): Continue current dose of medication. Will continue to monitor Assessment & Plan (10/28/2023 8:32 AM FISH CAKE MAKER): Continue current dose of medication. Will continue to monitor Assessment & Plan (04/30/2023 11:51 AM CDT): Continue current dose of medication. Will continue to monitor Assessment & Plan (10/24/2022 1:02 PM FISH CAKE MAKER): Continue current dose of medication. Will continue to monitor Assessment & Plan (04/23/2022 1:06 PM CDT): Continue current dose of medication. Will continue to monitor Assessment & Plan (10/23/2021 4:59 PM FISH CAKE MAKER): Continue current dose of medication. Will continue to monitor Assessment & Plan (04/20/2021 4:43 PM CDT): Continue current dose of medication. Will continue to monitor Assessment & Plan (10/20/2020 12:56 PM FISH CAKE MAKER): Continue current dose of medication. Will continue to monitor Assessment & Plan (04/20/2020 2:27 PM CDT): Continue current dose of medication. Will continue to monitor Assessment & Plan (12/21/2019 1:52 PM FISH CAKE MAKER): Continue current dose of medication. Will continue to monitor Assessment & Plan (10/21/2019 12:56 PM FISH CAKE MAKER): Continue current dose of medication. Will continue to monitor Assessment & Plan (04/20/2019 5:31 PM CDT): Continue current dose of medication. Will continue to monitor Lower back pain 03/13/2016 Resolved Problems Problem Noted Date Diagnosed Date Resolved Date Chronic kidney disease, stage 2 (mild) 03/19/2016 10/28/2023 Assessment & Plan (10/28/2023 8:32 AM FISH CAKE MAKER): Renal function is stable Assessment & Plan (10/24/2022 1:02 PM FISH CAKE MAKER): Renal function is stable Assessment & Plan (04/23/2022 1:06 PM CDT): Increase fluid intake and avoid nephrotoxins Assessment & Plan (10/23/2021 4:59 PM FISH CAKE MAKER): Renal function improved Assessment & Plan (04/20/2021 4:43 PM CDT): Patient does not drink enough water. We discussed the importance of increasing fluid intake mainly water and avoid soda and coffee. Assessment & Plan (10/20/2020 5:02 PM FISH CAKE MAKER): Mild with no change and continue to [...] Encounters Date Type Department Care Team Description 10/25/2025 3:45 PM FISH CAKE MAKER Office Visit [facility] Internal Medicine [address] [place] [phone] Roc Mcneal MD Acquired hypothyroidism (Primary Dx); Chronic anemia; Hypertensive kidney disease with stage 3a chronic kidney disease (HCC); Morbid obesity with BMI of 40.0-44.9, adult (HCC); Osteopenia of multiple sites; Stage 3a chronic kidney disease (HCC); Lymphocytosis 10/18/2025 Telephone [facility] Internal Medicine [address] [place] [phone] Roc Mcneal MD Additional Services Or Orders 10/14/2025 1:00 PM FISH CAKE MAKER Office Visit [facility] Nephrology at [address] [phone] Carlitos Emanuel MD Chronic kidney disease, stage 3a (HCC) (Primary Dx); Morbid obesity (HCC); Anemia in stage 3a chronic kidney disease (HCC); Secondary hyperparathyroidism 10/12/2025 Telephone [facility] Internal Medicine [address] [place] [phone] Roc Mcneal MD Referral Request 10/04/2025 Telephone [facility] Nephrology at [address] [phone] Carlitos Emanuel MD 08/13/2025 Telephone [facility] Internal Medicine [address] [place] [phone] Roc Mcneal MD from Last 3 Months Immunizations Immunization Administration Dates Next Due Influenza, Unspecified 11/04/2024(Deferr ed: Patient Refused),10/28/2023(Deferred: Patient decision),09/12/2022(Deferred: Patient decision) Surgical History Surgery Date Site/Laterality Comments TUBAL LIGATION GALLBLADDER SURGERY CHOLECYSTECTOMY CATARACT EXTRACTION April 2015 Medical History Medical History Date Comments Lower back pain Obesity Chronic anemia Hypothyroid CKD (chronic kidney disease) Anxiety Primary osteoarthritis, unspecified shoulder Hypertension 10/2024 Family History Medical History Relation Name Comments COPD Brother 1 Ovi Lowry Diabetes Brother 1 Ovi Lowry COPD Brother 2 Alberto Lowry Colon cancer Father Akil Lowry Diabetes Father Akil Lowry Brain cancer Mother Ashli Lowry Diabetes Mother Ashli Lowry Lung cancer Mother Ashli Lowry Alzheimer's disease Sister Elizabeth Gravin Relation Name Status Comments Brother 1 Ovi Lowry Brother 2 Alberto Lowry Father Akil Lowry Mother Ashli Lowry Sister Elizabeth Garvin Social History Tobacco Use Types Packs/Day Years Used Date Smoking Tobacco: Never Cigarettes Smokeless Tobacco: Never Tobacco Cessation:Counseling Given: Not Answered Alcohol Use Standard Drinks/Week Comments Yes 0 (1 standard drink = 0.6 oz pur e alcohol) socially PHQ-2 Answer Date Recorded PHQ-2 Total Score (If total score is 3 or more points, staff should administer the PHQ-9) 0 10/25/2025 AUDIT-C Answer Date Recorded Q1: How often do you have a drink containing alc ohol? Monthly or less 10/25/2025 Q2: How many drinks containi ng alcohol do you have on a typical day when you are drinking? 3 or 4 10/25/2025 Q3: How often do you have si x or more drinks on one occasion? Never 10/25/2025 Comments Unknown Sex and Gender Information Value Date Recorded Sex Assigned at Not on file Legal Sex Female 6:46 PM FISH CAKE MAKER Gender Identity Female 10/06/2021 5:34 PM CDT Sexual Orientation Straight 10/06/2021 5: 34 PM CDT Last Filed Vital Signs Vital Sign Reading Time Taken Comments Blood Pressure 138/86 10/25/2025 3:33 PM FISH CAKE MAKER Pulse 60 10/25/2025 3:33 PM FISH CAKE MAKER Temperature 36.1 C (97 F) 10/25/2025 3:33 PM FISH CAKE MAKER Respiratory Rate 18 10/25/2025 3:33 PM FISH CAKE MAKER Oxygen Saturation 98% 10/25/2025 3:33 PM FISH CAKE MAKER Inhaled Oxygen Concentration - - Weight 103.6 kg (228 lb 6.4 oz) 10/25/2025 3:33 PM FISH CAKE MAKER Height 160 cm (5' 3) 10/25/2025 3:33 PM FISH CAKE MAKER Body Mass Index 40.46 10/25/2025 3:33 PM FISH CAKE MAKER Plan of Treatment Health Maintenance Due Date Last Done Comments DTaP/Tdap/Td Vaccine (1 - Tdap) 1966 Hepatitis B Screening 1973 Breast Cancer Screening-Mammogram 11/05/2025 11/05/2024, 10/21/2023, 08/15/2020, Additional history exists Colon Cancer Screening-Colonoscopy 04/20/2026 04/20/2016 Fall Risk Assessment 05/05/2026 05/05/2025, 11/04/2024, 04/30/2023, Additional history exists Well Visit 65+ 05/05/2026 05/05/2025 Depression Screening 10/25/2026 10/25/2025, 05/05/2025, 11/04/2024, Additional history exists Osteoporosis Screening-Bone Density Scan 08/06/2027 08/06/2025, 03/18/2023 Colon Cancer Screening-CT Colonography Discontinued 04/20/2016 Colon Cancer Screening-DNA Stool Discontinued 04/20/20 16 Colon Cancer Screening-FIT Discontinued 04/20/2016 Colon Cancer Screening-Sigmoidoscopy Discontinued 04/20/2016 Hepatitis C Screening Completed 04/22/2024 Influenza Vaccine Discontinued Pneumococcal vaccine 65+ Discontinued Zoster Vaccine Discontinued Procedures Procedure Name Priority Date/Time Associated Diagnosis Comments HEMOGLOBIN A1C Routine 10/20/2025 1:06 PM FISH CAKE MAKER Morbid obesity with BMI of 40.0-44.9, adult (HCC) Hypertensive kidney disease with stage 3a chronic kidney disease (HCC) Encounter for screening for diabetes mellitus TSH Routine 10/20/2025 1:04 PM FISH CAKE MAKER Acquired hypothyroidism T4, FREE Routine 10/20/2025 1:04 PM FISH CAKE MAKER Acquired hypothyroidism LIPID PANEL Routine 10/20/2025 1:04 PM FISH CAKE MAKER Acquired hypothyroidism Hypertensive kidney disease with stage 3a chronic kidney disease (HCC) CBC WITH AUTO DIFFERENTIAL Routine 10/07/2025 1:49 PM FISH CAKE MAKER Chronic kidney disease, stage 3a (HCC) VITAMIN D 25 HYDROXY Routine 10/07/2025 1:49 PM FISH CAKE MAKER Chronic kidney disease, stage 3a (HCC) RENAL FUNCTION PANEL Routine 10/07/2025 1:49 PM FISH CAKE MAKER Chronic kidney disease, stage 3a (HCC) PTH Routine 10/07/2025 1:49 PM FISH CAKE MAKER Chronic kidney disease, stage 3a (HCC) PROTEIN / CREATININE RATIO, URINE, RANDOM Routine 10/07/2025 1:49 PM FISH CAKE MAKER Chronic kidney disease, stage 3a (HCC) HM DEXA SCAN Routine 08/06/2025 4:26 PM CDT HM MAMMOGRAPHY Routine 11/05/2024 8:20 AM FISH CAKE MAKER HEPATITIS C ANTIBODY Routine 04/22/2024 1:00 PM CDT HM COLONOSCOPY Routine 04/20/2016 from Last 3 Months or Most Recently Relevant to Health Maintenance Results * Hemoglobin A1c (10/20/2025 1:06 PM FISH CAKE MAKER) Hgb A1C 5.5 <5.7 % of total Hgb [facility] Comment: For the purpose of screening for the presence of diabetes: <5.7% Consistent with the absence of diabetes 5.7-6.4% Consistent with increased risk for diabetes (prediabetes) > or =6.5% Consistent with diabetes This assay result is consistent with a decreased risk of diabetes. Currently, no consensus exists regarding use of hemoglobin A1c for diagnosis of diabetes in children. According to [place] Diabetes Association (ADA) guidelines, hemoglobin A1c <7.0% represents optimal control in non- diabetic patients. Different metrics may apply to specific patient populations. Standards of Medical Care in Diabetes(ADA). Blood 10/20/2025 1:06 PM FISH CAKE MAKER 10/20/2025 1:06 PM FISH CAKE MAKER Narrative [facility] - 10/20/2025 10:38 PM FISH CAKE MAKER FASTING:YES FASTING: YES Roc Mcneal MD LAB BLOOD ORDERABLES Final Result Performing Organization Address [facility] de Phone Number [facility] [address] [place] [phone] * TSH (10/20/2025 1:04 PM FISH CAKE MAKER) Pathologist [facility] TSH 0.60 0.40 - 4.50 mIU/L [facility] Blood 10/20/2025 1:04 PM FISH CAKE MAKER 10/20/2025 1:04 PM FISH CAKE MAKER Narrative [facility] - 10/21/2025 12:35 AM FISH CAKE MAKER FASTING:YES FASTING: YES Roc Mcneal MD LAB BLOOD ORDERABLES Final Result Performing Organization Address [facility] de Phone Number [facility] [address] [place] [phone] * T4, free (10/20/2025 1:04 PM FISH CAKE MAKER) [facility] Free T4 1.8 0.8 - 1.8 ng/dL [facility] Blood 10/20/2025 1:04 PM FISH CAKE MAKER 10/20/2025 1:04 PM FISH CAKE MAKER Narrative [facility] - 10/21/2025 12:35 AM FISH CAKE MAKER FASTING:YES FASTING: YES Roc Mcneal MD LAB BLOOD ORDERABLES Final Result Performing Organization Address [facility] Co de Phone Number [facility] [address] [place] [phone] * Lipid panel (10/20/2025 1:04 PM FISH CAKE MAKER) [facility] Cholesterol 170 <200 mg/dL [facility] HDL 52 > OR = 50 mg/dL [facility] Triglycerides 107 <150 mg/dL [facility] LDL 98 mg/dL (calc) [facility] Comment: Reference range: <100 Desirable range <100 mg/dL for primary prevention; <70 mg/dL for patients with CHD or diabetic patients with > or = 2 CHD risk factors. LDL-C is now calculated using the Edis calculation, which is a validated novel method providing better accuracy than the Friedewald equation in the estimation of LDL-C. Kristofer GALICIA et al. DINA. 2013;310(19): 6583-4027 (http://education.IntelliFlo/faq/UQS030) Chol/HDL ratio 3.3 <5.0 (calc) [facility] Non-HDL, (LDL+VLDL) 118 <130 mg/dL (calc) [facility] Comment: For patients with diabetes plus 1 major ASCVD risk factor, treating to a non-HDL-C goal of <100 mg/dL (LDL-C of <70 mg/dL) is considered a therapeutic option. Blood 10/20/2025 1:04 PM FISH CAKE MAKER 10/20/2025 1:04 PM FISH CAKE MAKER Narrative [facility] - 10/21/2025 12:35 AM FISH CAKE MAKER FASTING:YES FASTING: YES us Roc Mcneal MD LAB BLOOD ORDERABLES Final Result [facility] [address] [place] [address] * (ABNORMAL) CBC with auto differential (10/07/2025 1:49 PM FISH CAKE MAKER) WBC 9.5 3.8 - 10.8 Thousand/u L [facility] RBC, POC 3.87 3.80 - 5.10 Million/uL [facility] Hgb 12.7 11.7 - 15.5 g/dL [facility] Hct 38.4 35.0 - 45.0 % [facility] MCV 99.2 80.0 - 100.0 fL [facility] MCH 32.8 27.0 - 33.0 pg [facility] MCHC 33.1 32.0 - 36.0 g/dL [facility] Comment: For adults, a slight decrease in the calculated MCHC value (in the range of 30 to 32 g/dL) is most likely not clinically significant; however, it should be interpreted with caution in correlation with other red cell parameters and the patient's clinical condition. Rdw 13.1 11.0 - 15.0 % [facility] Platelets 181 140 - 400 Thousand/u L [facility] MPV 11.4 7.5 - 12.5 fL [facility] Neutrophils, abs 3,249 1,500 - 7,800 cells/uL [facility] Lymphocytes, abs 5,453(H) 850 - 3,900 cells/uL [facility] Monocyte abs 656 200 - 950 cells/uL [facility] Eosinophils, abs 86 15 - 500 cells/uL [facility] Basophils, abs 57 0 - 200 cells/uL [facility] Neutrophils 34.2 % [facility] Lymphocyte pct 57.4 % [facility] Monocytes 6.9 % [facility] Eosinophils 0.9 % [facility] Basophils 0.6 % [facility] Blood 10/07/2025 1:49 PM FISH CAKE MAKER 10/07/2025 1:51 PM FISH CAKE MAKER Result [facility] us Carlitos Emanuel MD LAB BLOOD ORDERABLES Final Result [facility] [address] [place] [address] * Protein / creatinine ratio, urine, random (10/07/2025 1:49 PM FISH CAKE MAKER) Creatinine, ur 76 20 - 275 mg/dL [facility] Protein/creatin ine ratio 118 24 - 184 mg/g creat [facility] Protein/Creatin ine Ratio 0.118 0.024 - 0.184 mg/mg creat [facility] Protein, ur, quant 9 5 - 24 mg/dL [facility] Urine 10/07/2025 1:49 PM FISH CAKE MAKER 10/07/2025 1:51 PM FISH CAKE MAKER us Carlitos Emanuel MD LAB URINE ORDERABLES Final Result Performing Organization Address City/[facility]/ZIP Co de Phone Number [facility] [address] [place] [phone] * Vitamin D 25 hydroxy (10/07/2025 1:49 PM FISH CAKE MAKER) Vitamin D 25-OH 78 30 - 100 ng/mL [facility] Comment: Vitamin D Status 25-OH Vitamin D: Deficiency: <20 ng/mL Insufficiency: 20 - 29 ng/mL Optimal: > or = 30 ng/mL For 25-OH Vitamin D testing on patients on D2-supplementation and patients for whom quantitation of D2 and D3 fractions is required, the QuestAssureD(TM) 25-OH VIT D, (D2,D3), LC/MS/MS is recommended: order code 66812 (patients >2yrs). See Note 1 Note 1 For additional information, please refer to http://education.IntelliFlo/faq/JVU377 (This link is being provided for informational/ educational purposes only.) Blood 10/07/2025 1:49 PM FISH CAKE MAKER 10/07/2025 1:51 PM FISH CAKE MAKER us Carlitos Emanuel MD LAB BLOOD ORDERABLES Final Result Performing Organization Address City/[facility]/ZIP Co de Phone Number [facility] [address] [place] [address] * PTH (10/07/2025 1:49 PM FISH CAKE MAKER) Parathyroid hormone, intact 47 16 - 77 pg/mL [facility] Comment: Interpretive Guide Intact PTH Calcium ------- Normal Parathyroid Normal Normal Hypoparathyroidism Low or Low Normal Low Hyperparathyroidism Primary Normal or High High Secondary High Normal or Low Tertiary High High Non-Parathyroid Hypercalcemia Low or Low Normal High Blood 10/07/2025 1:49 PM FISH CAKE MAKER 10/07/2025 1:51 PM FISH CAKE MAKER us Rouba G. Ghoussoub MD LAB BLOOD ORDERABLES Final Result [facility] [address] [phone] * (ABNORMAL) Renal function panel (10/07/2025 1:49 PM FISH CAKE MAKER) Glucose 91 65 - 99 mg/dL [facility] Comment: Fasting reference interval BUN 16 7 - 25 mg/dL [facility] Creatinine 1.37(H) 0.60 - 1.00 mg/dL [facility] eGFR 42(L) > OR = 60 mL/min/1.7 3m2 [facility] BUN/creat ratio 12 6 - 22 (calc) [facility] Sodium 140 135 - 146 mmol/L [facility] Potassium, pl 4.0 3.5 - 5.3 mmol/L [facility] Chloride 103 98 - 110 mmol/L [facility] CO2 31 20 - 32 mmol/L [facility] Calcium 9.8 8.6 - 10.4 mg/dL [facility] Phosphorus, sr 3.7 2.1 - 4.3 mg/dL [facility] Albumin 4.0 3.6 - 5.1 g/dL [facility] Blood 10/07/2025 1:49 PM FISH CAKE MAKER 10/07/2025 1:51 PM FISH CAKE MAKER Carlitos Emanuel MD LAB BLOOD ORDERABLES Final Result [facility] [place] [address] [place] [address] * DEXA SCAN (08/06/2025 4:26 PM CDT) Pathologist [facility] Scribed Deca Scan Normal Carly Mann MD HEALTH MAINTENANCE Final Result * MAMMOGRAPHY (11/05/2024 8:20 AM FISH CAKE MAKER) Mammography Normal Historical Provider HEALTH MAINTENANCE Final Result * Hepatitis C antibody (04/22/2024 1:00 PM CDT) Hep C Ab NON-REACTI VE NON-REACT [facility] Comment: HCV antibody was non-reactive. There is no laboratory evidence of HCV infection. In most cases, no further action is required. However, if recent HCV exposure is suspected, a test for HCV RNA (test code 12541) is suggested. For additional information please refer to http://education.First Active Media/faq/RLX81h8 (This link is being provided for informational/ educational purposes only.) 04/22/2024 1:00 PM CDT 04/22/2024 1:01 PM CDT Roc Mcneal MD LAB MICROBIOLOGY - GENERAL ORDERABLES Final Result [facility] [id number] [place] [address] * COLONOSCOPY (04/20/2016) Pathologist [facility] Colonoscopy Normal Comment:repeat in 10 years Joann Cardona Historical Provider HEALTH MAINTENANCE Final Result from Last 3 Months or Most Recently Relevant to Health Maintenance Insurance [facility] Care Teams Shoe Sewing Machine Operator And Tender Relationship Specialty Start Date End Date Roc Mcneal MD [address] [facility] [address] [place] [id number] PCP - General Internal Medicine 04/16/19
--- OUTSIDE RECORDS SUMMARY | 2025-11-10 20:35 | XMS_ITS | Encounter Summary ---
Author Organization [facility] Facility Care Team Providers Care Hotel Engineer Name Role Phone Roc Mcneal MD Primary Care Provider [phone] Encounter Details Date Type Department Care Team (Latest Contact Info) Description 04/18/2016 Orders Only [facility] CLINCONV ProviderCarly MD [address] [place] [address] Social History Tobacco Use Types Packs/Day Years Used Date Smoking Tobacco: Never Assessed Comments Unknown Sex and Gender Information Value Date Recorded Sex Assigned at Not on file Legal Sex Female 6:46 PM PLANT UTILITIES ENGINEER Gender Identity Female 10/06/2021 5:34 PM CDT [...] on filedocumented in this encounter Care Teams Hotel Engineer Relationship Specialty Start Date End Date Roc Mcneal MD [address] [facility] [address] [place] [id number] PCP - General Internal Medicine 04/16/19 documented as of this encounter
--- OUTSIDE RECORDS SUMMARY | 2025-11-10 20:35 | XMS_ITS | Encounter Summary ---
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 Historical Provider Final Res ult documented in this encounter Visit Diagnoses Not on filedocumented in this encounter Care Teams Cable Way Operator Relationship Specialty Start Date End Date Roc Mcneal MD [address] [facility] [place] [address] PCP - General Internal Medicine 04/16/19 documented as of this encounter
--- OUTSIDE RECORDS SUMMARY | 2025-11-10 20:35 | XMS_ITS | Encounter Summary ---
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
--- OUTSIDE RECORDS SUMMARY | 2025-11-10 20:36 | XMS_ITS | Encounter Summary ---
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
--- OUTSIDE RECORDS SUMMARY | 2025-11-10 20:36 | XMS_ITS | Encounter Summary ---
Author Organization 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
== END 2025-11-10 15:30 | disposition home or self-care (01) ==
PROVIDERS: PCP Internal Medicine; Visit Provider Obstetrics & Gynecology
DX: Z12.31 Encounter for screening mammogram for malignant neoplasm of breast (principal)
CPT/HCPCS: 77063; 77067